=== PATIENT | male | born 1980 | race Caucasian/White ===

== ENCOUNTER 2017-12-03 12:44 | Outpatient (CLI) | payer OTHER, MEDICARE ==
--- NOTE | 2017-12-03 15:52 | MRI ---
CERVICAL SPINE MRI WITHOUT CONTRAST: Date: 12-03-17 Comparison: None. History: Cervical radiculopathy. FINDINGS: There is diffuse abnormal signal intensity throughout the imaged cord. 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 This is primarily located within the right aspect of the cord fro m the C1-2 level and involves the entire cord at the C7-T1 level. The sagittal STIR imaging demonstrates no focal area of osseous marrow edema. There is mild degenerat chencho change at the atlantoaxial interspace. C2-3: Intervertebral disc height and signal intensity is within normal limits with no significant rodolfo tral canal or neural foraminal stenosis. C3-4: Intervertebral disc height and signal intensity is within normal limits with no significant rodolfo tral canal or neural foraminal stenosis. C4-5: Intervertebral disc height and signal intensity is within normal limits with no significant rodolfo tral canal or neural foraminal stenosis. C5-6: Intervertebral disc height and signal intensity is within normal limits with no significant rodolfo tral canal or neural foraminal stenosis. C6-7: Intervertebral disc height and signal intensity is within normal limits with no significant rodolfo tral canal or neural foraminal stenosis. C7-T1: Intervertebral disc height and signal intensity is within normal limits with no significant ce ntral canal or neural foraminal stenosis. IMPRESSION: 1. Extensive abnormal increased T2 signal intensity is seen throughout the visualized spinal cord. Th is suggests syringohydromyelia. Further evaluation with post contrast imaging of the cervical spine a s well as thoracic spine MRI with and without contrast advised to exclude an underlying mass lesion c ausing edema/syringohydromyelia within the cord. Code Brad Jackman made aware at the time of dictation on 12/03/2017. POS: [facility]
== END 2017-12-03 12:45 | disposition home or self-care (01) ==
LOC: MRI 12:44
PROVIDERS: ATTEND Neurological Surgery
DX: M54.12 Radiculopathy, cervical region (principal)
CPT/HCPCS: 72141

== ENCOUNTER 2017-12-29 08:25 | Outpatient (CLI) | payer OTHER, MEDICARE ==
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
--- NOTE | 2017-12-29 10:46 | MRI ---
MRI THORACIC SPINE NONCONTRAST: 12/29/2017 HISTORY: S24.109A, thoracic spinal cord injury in a 37-year-old male. Paraplegia for 17 years due to traumatic injury. COMPARISON: No prior MRIs of the thoracic spine. FINDINGS: There is a syrinx involving the entire visualized portions of the cervical spinal cord and the thorac ic spinal cord. The caliber of the syrinx is greatest in the lower thoracic spine, occupying essenti ally the entire cross sectional area of the spinal cord, diameter measuring approximately 14 mm, expa nding the cord such that the residual cord parenchyma is only a very thin, peripheral rim of tissue. The cord expansion results in the spinal cord occupying almost the entire cross-sectional area of th e spinal canal, at the lower thoracic spine levels (for example, the T10 level). There are pedicle s crews at T10 and T11 and inferior to that, such that the intraspinal canal contents are partially obs cured. The caliber of the syrinx varies throughout the mid and upper thoracic spinal cord, but still occupies the majority of the cross-sectional area of the cord at all levels, and expands the cord to varying degrees. At the upper thoracic spine, it still occupies approximately 70% to 80% of the crown and bridge dental lab technician ss-sectional area of the cord, and it is centered slightly to the right of midline. It still expands the cord at most levels. There are at least 4 focal disk herniations or disk-osteophyte complexes that indent the spinal cord: Right paracentral at T5-T6, left paracentral at T6-T7, central at T7-T8, and right paracentral at T 8-T9, Despite the cord impingements, there is no high grade central spinal canal stenosis at any leve l. There is no high grade neural foraminal stenosis at any level. The vertebral body heights are ma intained from T1 through T11. Bone marrow signal is normal throughout all levels superior to T10. A t the lower levels, the hardware makes it difficult to evaluate the bone marrow signal. There is no major pathology of the perivertebral spaces. There are bilateral tiny pleural effusions. IMPRESSION: 1. 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 2. Multiple (4) focal disk herniations impinging on the spinal cord, but without causing high grade central spinal canal stenosis. 3. Pedicle screws in the lower thoracic spine and lumbar spine. 4. As recommended on the noncontrast cervical spine MRI report of 12/03/2017, contrast enhanced MRIs of the thoracic spine and cervical spine are still recommended to exclude the possibility of a neopl asm as a possible cause of the syrinx. POS: [facility]
--- NOTE | 2017-12-29 12:21 | CT ---
CT OF THE THORACIC SPINE WITHOUT IV CONTRAST: HISTORY: History of paraplegia with back pain. FINDINGS: There is partial visualization of instrumentation involving T11, T12, and L2. There is healed fractu re deformity involving L1. There is bone fragment projecting off the superior aspect of the L1 pedic le causing mild to moderate right osseous neural foraminal narrowing at T12-L1. There is mild centra l canal narrowing at T12-L1 due to retropulsed bone fragment of L1. There is mild multilevel disk deg enerative disease of the thoracic spine. No additional osseous central canal or neural foraminal eliu rowing is otherwise demonstrated. Visualized lungs are clear. Visualized aspects of the retroperito neum appear within normal limits. IMPRESSION: 1. Mild to moderate right osseous neural foraminal narrowing at T12-L1 due to ella projection from the posterior superior aspect of the L1 vertebra and superior aspect of the right L1 pedicle. There is some mild osseous neural central canal narrowing at T12-L1 due to some healed retropulsed bone fra gments of the posterior and superior margin of L1. 2. Mild multilevel spondylosis of the thoracic spine. 3. Partial visualization of instrumentation involving the lower thoracic and upper lumbar spine. POS: [facility]
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
== END 2017-12-29 08:26 | disposition home or self-care (01) ==
LOC: TBSIIMAG 08:25
PROVIDERS: ATTEND Neurological Surgery
DX: S24.109A Unspecified injury at unspecified level of thoracic spinal cord, initial encounter (principal); M47.896 Other spondylosis, lumbar region; M47.894 Other spondylosis, thoracic region; M48.05 Spinal stenosis, thoracolumbar region; M51.24 Other intervertebral disc displacement, thoracic region; G95.0 Syringomyelia and syringobulbia; M99.82 Other biomechanical lesions of thoracic region; M99.83 Other biomechanical lesions of lumbar region; Z98.1 Arthrodesis status
CPT/HCPCS: 72128; 72131; 72146; 72148

== ENCOUNTER 2019-08-06 21:32 | Emergency (ER) | payer OTHER, MEDICARE ==
[2019-08-06 22:36] LABS: Bacteria/HPF None Seen HPF (None Seen); Bilirubin Negative (Negative); Blood, Urine 1+ (Negative); Clarity Clear (Clear); Glucose, Urine (Dipstick) Normal (Negative); Leukocyte 25 Leu/uL (Negative); Nitrite Negative (Negative); Protein, Urine (Dipstick) Negative (Neg-Trace); RBC/HPF 0-3 HPF (0-3); Squamous Epithelial None Seen HPF (0-3); Urobilinogen Normal mg/dL (Less than 2); WBC/HPF 0-3 HPF (0-3)
[2019-08-06 23:57] LABS: #Basophils 0.1 thou/uL (0.0-0.2); #Eosinphils 0.3 thou/uL (0.0-0.7); #Monocytes 0.5 thou/uL (0.11-0.59); #Neutrophils 5.1 thou/uL (1.40-6.50); %Basophils 1.2 % (0.0-1.0); %Lymphocytes 33.1 % (21.0-51.0); %Monocytes 5.9 % (0.0-10.0); %Neutrophils 56.8 % (42.0-75.0); Hemoglobin 15.5 g/dL (14.0-18.0); Mean Corpuscular HGB CONC 35.2 g/dL (32.0-36.0); Mean Corpuscular Hemoglobin 34.2 pg (27.0-31.0); Mean Corpuscular Volume 97.2 fL (78.0-98.0); Mean Platelet Volume 7.7 fL (7.4-10.4); Platelet Count 305 thou/uL (130-400); RBC Distribution Width 12.1 % (11.5-14.5); Red Blood Cell (RBC) Count 4.53 mill/uL (4.70-6.10); White Blood Cell (WBC) Count 8.9 thou/uL (4.8-10.8)
[2019-08-07 00:11] LABS: ALT (SGPT) 73 U/L (8-55); AST (SGOT) 55 U/L (5-34); Albumin 4.5 g/dL (3.5-5.0); Alkaline Phosphatase 81 U/L (40-150); Anion Gap 16 mmol/L (10-20); BUN (Urea Nitrogen) 6 mg/dL (8.9-20.6); Bilirubin, Total 0.5 mg/dL (0.2-1.2); Calc. Creatinine Clearance 0 mL/min (70-130); Calcium 9.5 mg/dL (7.8-10.44); Carbon Dioxide 22 mmol/L (22-29); Chloride 105 mmol/L (98-107); Estimated GFR-MDRD Greater than 90; Globulin 2.9 g/dL (2.4-3.5); Glucose 98 mg/dL (70-105); Potassium 3.7 mmol/L (3.5-5.1); Protein, Total 7.4 g/dL (6.0-8.3); Sodium 139 mmol/L (136-145)
[2019-08-07 01:12] LABS: Bacteria/HPF 1+ HPF (None Seen); Bilirubin Negative (Negative); Blood, Urine 1+ (Negative); Clarity Clear (Clear); Glucose, Urine (Dipstick) Normal (Negative); Leukocyte Negative Leu/uL (Negative); Nitrite Negative (Negative); Protein, Urine (Dipstick) Negative (Neg-Trace); RBC/HPF 0-3 HPF (0-3); Squamous Epithelial 0-3 HPF (0-3); Urobilinogen Normal mg/dL (Less than 2)
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
== END 2019-08-07 00:55 | disposition home or self-care (01) ==
LOC: ERS 21:32
DX: R33.9 Retention of urine, unspecified (principal); R31.9 Hematuria, unspecified; I10 Essential (primary) hypertension; F41.9 Anxiety disorder, unspecified; Z79.899 Other long term (current) drug therapy
CPT/HCPCS: 36415; 51798; 80053; 81003; 81015; 85025; 87086

== ENCOUNTER 2019-08-22 13:51 | Emergency (ER) | payer MEDICARE, OTHER ==
[2019-08-22 14:48] LABS: Bilirubin Negative (Negative); Blood, Urine 2+ (Negative); Clarity Clear (Clear); Glucose, Urine (Dipstick) Normal (Negative); Leukocyte 500 Leu/uL (Negative); Nitrite Negative (Negative); Protein, Urine (Dipstick) 20 mg/dL (Neg-Trace); Urobilinogen Normal mg/dL (Less than 2)
[2019-08-22 14:56] LABS: Bacteria/HPF 3+ HPF (None Seen); Squamous Epithelial 0-3 HPF (0-3); WBC/HPF 21-50 HPF (0-3)
[2019-08-22 15:22] LABS: #Basophils 0.1 thou/uL (0.0-0.2); #Eosinphils 0.1 thou/uL (0.0-0.7); #Lymphocytes 1.8 thou/uL (1.20-3.40); #Monocytes 0.7 thou/uL (0.11-0.59); #Neutrophils 9.3 thou/uL (1.40-6.50); %Basophils 0.8 % (0.0-1.0); %Eosinophils 0.8 % (0.0-10.0); %Lymphocytes 15.1 % (21.0-51.0); %Monocytes 5.7 % (0.0-10.0); %Neutrophils 77.7 % (42.0-75.0); Hemoglobin 15.5 g/dL (14.0-18.0); Mean Corpuscular HGB CONC 34.9 g/dL (32.0-36.0); Mean Corpuscular Hemoglobin 33.8 pg (27.0-31.0); Mean Corpuscular Volume 96.7 fL (78.0-98.0); Mean Platelet Volume 7.6 fL (7.4-10.4); Platelet Count 372 thou/uL (130-400); RBC Distribution Width 11.7 % (11.5-14.5); Red Blood Cell (RBC) Count 4.58 mill/uL (4.70-6.10)
[2019-08-22 15:43] LABS: ALT (SGPT) 50 U/L (8-55); AST (SGOT) 31 U/L (5-34); Albumin 4.5 g/dL (3.5-5.0); Alkaline Phosphatase 95 U/L (40-110); Anion Gap 17 mmol/L (10-20); BUN (Urea Nitrogen) 7 mg/dL (8.9-20.6); Bilirubin, Total 0.4 mg/dL (0.2-1.2); Calc. Creatinine Clearance 0 mL/min (70-130); Calcium 9.2 mg/dL (7.8-10.44); Carbon Dioxide 21 mmol/L (22-29); Chloride 105 mmol/L (98-107); Estimated GFR-MDRD Greater than 90; Globulin 3.4 g/dL (2.4-3.5); Glucose 115 mg/dL (70-105); Protein, Total 7.9 g/dL (6.0-8.3); Sodium 139 mmol/L (136-145)
== END 2019-08-22 16:02 | disposition home or self-care (01) ==
LOC: ERS 13:51
DX: R31.9 Hematuria, unspecified (principal); F41.9 Anxiety disorder, unspecified
CPT/HCPCS: 36415; 80053; 81003; 81015; 85025; 99283

== ENCOUNTER 2020-01-10 12:37 | Outpatient (CLI) | payer OTHER, MEDICARE ==
--- NOTE | 2020-01-10 17:36 | MRI ---
MRI THORACIC SPINE WITHOUT CONTRAST: History: Syringomyelia. Spinal cord injury. Follow up. Patient refused IV contrast. Comparison: 12-29-17 FINDINGS: Severe syringomyelia again noted involving the entire visualized thoracic cord. Extensive syringomyel ia has not significantly changed. Hardware in the lower thoracic spine limits evaluation below T10. There is a disc protrusion at T6-7 paracentrally in the right, impinging on the anterior cord on the right. There continues to be disc protrusion seen at T7-8. A focal protrusion centrally at T7-8 abuts the an terior cord, extending to the left of midline. Disc protrusion and extrusion at T8-9 with superior mi gration compresses the anterior cord. Disc protrusion at T9-10 with superior migration impinges on the anterior cord to the right of midlin e. The visualized thoracic vertebrae maintain normal height and alignment and exhibit normal signal. IMPRESSION: Extensive syringomyelia involving the entire thoracic cord without significant interval change. Disc protrusions are seen as described above. POS: [facility]
--- NOTE | 2020-01-10 17:58 | MRI ---
MRI CERVICAL SPINE WITHOUT CONTRAST: Technologist states that the patient refused IV contrast. History: Neck pain, follow up cervical radiculopathy. Comparison: MRI without contrast 12-03-2017. FINDINGS: Extensive abnormal signal seen throughout the cervical cord and upper thoracic cord. Large area of ab normal signal is seen in the cord to the right of midline as noted on the axial images. This is predo minately high T2 but is somewhat heterogeneous on T2 and low T1. Findings suggest a large syringomyel ocele. It has increased in size when compared to 12-03-17. The syringomyelia is primarily to the right of midline within the cord. There is extensive abnormal T2 signal seen in the cord to the left of mi dline and the cord is enlarged. The degree of abnormal signal appears to have increased within the le ft aspect of the cord. Another small focal area of syringomyelia in the left cord is noted which is m ore prominent today. Cord expansion appears to have increased when compared to the prior study. Cervical vertebrae maintain normal height and alignment and the disc spaces are preserved. There is m ild disc bulge seen at the C4-5 and C5-6 levels. The bulges at this level mildly flatten the anterior thecal sac but do not produce significant cord impingement. Cervical vertebrae signal appears normal ly preserved. IMPRESSION: Extensive abnormality of the cervical cord is again noted extending to the cervicomedullary junction and into the visualized thoracic cord. Large syringomyelia is seen in the cord to the right of midlin e. There is extensive abnormal signal seen in the cord to the left of midline with other focal areas of syringomyelia in the left cord. The cord is enlarged and has increased in size when compared to th e prior exam. The syringomyelia has increased since prior exam. Post contrast exam is again recommend ed. POS: [facility]
== END 2020-01-10 12:38 | disposition home or self-care (01) ==
LOC: TBSIIMAG 12:37
PROVIDERS: ATTEND Physician Assistant
DX: S24.101A Unspecified injury at T1 level of thoracic spinal cord, initial encounter (principal); G95.0 Syringomyelia and syringobulbia; M54.12 Radiculopathy, cervical region; M54.16 Radiculopathy, lumbar region; M51.14 Intervertebral disc disorders with radiculopathy, thoracic region
CPT/HCPCS: 72141; 72146; 72148

== ENCOUNTER 2020-01-14 14:00 | Inpatient (IN) | payer OTHER, MEDICARE ==
[2020-01-14 15:14] LABS: #Basophils 0.1 thou/uL (0.0-0.2); #Eosinphils 0.2 thou/uL (0.0-0.7); #Lymphocytes 2.5 thou/uL (1.20-3.40); #Monocytes 0.6 thou/uL (0.11-0.59); #Neutrophils 5.6 thou/uL (1.40-6.50); %Basophils 0.7 % (0.0-1.0); %Eosinophils 2.4 % (0.0-10.0); %Lymphocytes 27.6 % (21.0-51.0); %Monocytes 6.9 % (0.0-10.0); %Neutrophils 62.4 % (42.0-75.0); Mean Corpuscular HGB CONC 34.4 g/dL (32.0-36.0); Mean Corpuscular Hemoglobin 35.3 pg (27.0-31.0); Mean Platelet Volume 7.9 fL (7.4-10.4); Platelet Count 298 thou/uL (130-400); Red Blood Cell (RBC) Count 3.98 mill/uL (4.70-6.10); White Blood Cell (WBC) Count 8.9 thou/uL (4.8-10.8)
[2020-01-14] MEDS ORDERED: Ampicillin/Sulbactam 3 GM in Sodium Chloride 0.9% 100 ML IVPB SCH (15:30)
[2020-01-14 15:36] LABS: ALT (SGPT) 95 U/L (8-55); AST (SGOT) 74 U/L (5-34); Albumin 4.2 g/dL (3.5-5.0); Alkaline Phosphatase 100 U/L (40-110); Anion Gap 15 mmol/L (10-20); BUN (Urea Nitrogen) 5 mg/dL (8.9-20.6); Bilirubin, Total 0.6 mg/dL (0.2-1.2); Calc. Creatinine Clearance 0 mL/min (70-130); Calcium 9.5 mg/dL (7.8-10.44); Carbon Dioxide 23 mmol/L (22-29); Chloride 105 mmol/L (98-107); Estimated GFR-MDRD Greater than 90; Globulin 3.8 g/dL (2.4-3.5); Glucose 110 mg/dL (70-105); Potassium 3.6 mmol/L (3.5-5.1); Sodium 139 mmol/L (136-145)
[2020-01-14 15:37] LABS: CRP (Inflammatory) 5.71 mg/dL (= or < 0.5)
--- NOTE | 2020-01-14 15:37 | RAD ---
LEFT THUMB 3 VIEWS: Date: 01/14/2020 HISTORY: Swelling, injury. FINDINGS: There is soft tissue swelling, particularly over the dorsal aspect of the thumb. No acute fracture or dislocation. No evidence for metal foreign body. IMPRESSION: Soft tissue swelling of the thumb without acute fracture or dislocation. POS: [facility]
--- NOTE | 2020-01-14 16:25 | ULT ---
Exam: Left thumb ultrasound HISTORY: Evaluate for abscess. Patient recently had the left thumb lanced COMPARISON: none FINDINGS: Targeted sonographic imaging demonstrates soft tissue edema and phlegmonous change. No evid ence of abscess IMPRESSION: No sonographic evidence of abscess.
[2020-01-14 18:09] VITALS: BMI 24.9
[2020-01-14] MEDS ORDERED: Acetaminophen 325 MG TAB PO PRN (18:26)
[2020-01-14] MEDS ORDERED: Ondansetron ODT 4 MG TAB SL PRN (18:26)
[2020-01-14] MEDS ORDERED: Ondansetron PF 4 MG/2 ML Vial IVP PRN (18:26)
[2020-01-14] MEDS ORDERED: HYDROcodone/Acetaminophen 10/325 mg Tablet PO PRN (18:47)
[2020-01-14] MEDS ORDERED: Furosemide 20 MG TAB PO SCH (19:00)
[2020-01-14] MEDS: Nortriptyline HCl 25 MG CAP PO SCH (20:16)
[2020-01-14] MEDS ORDERED: Nortriptyline HCl 25 MG CAP PO SCH (21:00)
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
[2020-01-15] MEDS ORDERED: Vancomycin HCl 1 GM in Premix Bag 1 BAG IVPB SCH (03:00)
[2020-01-15] MEDS: Metoprolol Tartrate 25 MG TAB PO SCH (05:56)
[2020-01-15 06:54] LABS: #Basophils 0.1 thou/uL (0.0-0.2); #Eosinphils 0.2 thou/uL (0.0-0.7); #Lymphocytes 1.5 thou/uL (1.20-3.40); #Monocytes 0.7 thou/uL (0.11-0.59); #Neutrophils 4.1 thou/uL (1.40-6.50); %Basophils 1.2 % (0.0-1.0); %Eosinophils 3.1 % (0.0-10.0); %Lymphocytes 22.7 % (21.0-51.0); %Monocytes 10.2 % (0.0-10.0); %Neutrophils 62.8 % (42.0-75.0); Hemoglobin 13.3 g/dL (14.0-18.0); Mean Corpuscular HGB CONC 34.6 g/dL (32.0-36.0); Mean Corpuscular Hemoglobin 35.7 pg (27.0-31.0); Mean Platelet Volume 8.1 fL (7.4-10.4); Platelet Count 267 thou/uL (130-400); Red Blood Cell (RBC) Count 3.72 mill/uL (4.70-6.10); White Blood Cell (WBC) Count 6.5 thou/uL (4.8-10.8)
[2020-01-15 07:22] LABS: Anion Gap 11 mmol/L (10-20); BUN (Urea Nitrogen) 7 mg/dL (8.9-20.6); Calc. Creatinine Clearance 193 mL/min (70-130); Calcium 9.2 mg/dL (7.8-10.44); Carbon Dioxide 29 mmol/L (22-29); Chloride 105 mmol/L (98-107); Estimated GFR-MDRD Greater than 90; Glucose 94 mg/dL (70-105); Potassium 4.2 mmol/L (3.5-5.1); Sodium 141 mmol/L (136-145)
[2020-01-15] MEDS: Folic Acid 1 MG TAB PO SCH (08:16)
[2020-01-15] MEDS: Enoxaparin Sodium 30 MG/0.3 ML SYRINGE SC SCH (08:16)
[2020-01-15] MEDS: Multivitamin W/ Minerals 1 TAB PO SCH (08:16)
[2020-01-15] MEDS: Furosemide 20 MG TAB PO SCH (08:17)
[2020-01-15] MEDS: Nortriptyline HCl 25 MG CAP PO SCH ×2 (08:17→21:31)
[2020-01-15] MEDS: Thiamine 100 MG TAB PO SCH (08:17)
[2020-01-15] MEDS ORDERED: Morphine 2 MG/ML SYRINGE SLOW IVP PRN (10:49)
--- NOTE | 2020-01-15 15:06 | PDOC.HOSPP ---
- Subjective Encounter Date: 01/15/20 Encounter Time: 08:40 Subjective: Pt seen for followup re: L thumb cellulitis. Feels better. - Objective Vital Signs & Weight: Vital Signs (12 hours) Temp Pulse Resp BP Pulse Ox 01/15/20 11:51 97.5 F L 93 18 147/98 H 99 01/15/20 08:00 97.9 F 88 18 111/68 98 01/15/20 04:00 97.4 F L 85 18 128/81 97 Weight Weight 210 lb I&O: 01/14/20 01/15/20 01/16/20 06:59 06:59 06:59 Intake Total 690 Balance 690 Result Diagrams: 01/15/20 06:20 01/15/20 06:19 Additional Labs: labs and MARs reviewed by al Hospitalist ROS - Review of Systems Constitutional: denies: fever, chills, sweats, weakness, malaise Cardiovascular: denies: chest pain, palpitations, orthopnea, paroxysmal noc. dyspnea, edema, light headedness Gastrointestinal: denies: nausea, vomiting, abdominal pain, diarrhea, constipation, melena, hematochezia Genitourinary: denies: dysuria, frequency, incontinence, hematuria, retention Musculoskeletal: reports: other (L thumb pain). denies: neck pain, shoulder pain, arm pain, back pain, hand pain, leg pain, foot pain - Medication Medications: Active Medications Generic Name Dose Route Start Last Admin Trade Name Freq PRN Reason Stop Dose Admin Hydrocodone Bitart/Acetaminophen 2 tab 01/14/20 18:47 01/15/20 10:46 [place] 10/325 PO 2 tab Q4H PRN Administration Pain Betamethasone/Clotrimazole 0 gm 01/14/20 21:00 01/15/20 08:48 Lotrisone Cream TOP 1 applic BID VISH Administration Enoxaparin Sodium 30 mg 01/15/20 09:00 01/15/20 08:16 Lovenox SC Not Given 0900 VISH Folic Acid 1 mg 01/15/20 09:00 01/15/20 08:16 Folvite PO Not Given DAILY VISH Furosemide 20 mg 01/15/20 09:00 01/15/20 08:17 Lasix PO Not Given DAILY VISH Iron/Minerals/Multivitamins 1 tab 01/15/20 09:00 01/15/20 08:16 Theragran M PO Not Given DAILY [facility] Metoprolol Tartrate 25 mg 01/15/20 09:00 01/15/20 05:56 Lopressor PO 25 mg DAILY VISH Administration Nortriptyline HCl 100 mg 01/14/20 21:00 01/14/20 20:16 Pamelor PO 100 mg HS VISH Administration Nortriptyline HCl 50 mg 01/15/20 09:00 01/15/20 08:17 Pamelor PO Not Given DAILY VISH Pantoprazole Sodium 40 mg 01/15/20 07:30 01/15/20 08:16 Protonix PO Not Given BID-AC VISH Sodium Chloride 10 ml 01/14/20 21:00 01/15/20 08:48 Flush - Normal Saline IVF 10 ml Q12HR VISH Administration Thiamine HCl 100 mg 01/15/20 09:00 01/15/20 08:17 Thiamine PO Not Given DAILY VISH - Exam General Appearance: awake alert Eye: anicteric sclera Neck: supple, symmetric, no thyromegaly, no lymphadenopathy Heart: RRR, no gallops, no rubs, normal peripheral pulses Respiratory: CTAB, no wheezes, no rales, no ronchi, normal chest expansion Gastrointestinal: soft, non-tender, non-distended, normal bowel sounds Extremities: 1+ LE edema Skin - other findings: R thumb cellulitis Musculoskeletal - other findings: paraplegia Psychiatric: normal affect, normal behavior, A&O x 3 Hosp A/P - Plan - Assessment/Plan: (1) Cellulitis of thumb, left Code(s): L03.012 - CELLULITIS OF LEFT FINGER Status: Acute -continue IV vancomycin -For surgery later today (2) Paraplegia Code(s): G82.20 - PARAPLEGIA, UNSPECIFIED Status: Chronic -has lower extremity swelling; continue lasix (3) Anxiety Code(s): F41.9 - ANXIETY DISORDER, UNSPECIFIED Status: Chronic -nil acute (4) GERD (gastroesophageal reflux disease) Code(s): K21.9 - GASTRO-ESOPHAGEAL REFLUX DISEASE WITHOUT ESOPHAGITIS Status: Chronic Assessment and Plan: -stable (5) Hypertension Code(s): I10 - ESSENTIAL (PRIMARY) HYPERTENSION Status: Acute -well controlled
[2020-01-15] MEDS ORDERED: Bupivacaine PF 0.5% 30 ML VIAL ONE (15:39)
[2020-01-15] MEDS ORDERED: Bacitracin Zinc Ointment 30 gm TUBE ONE (15:39)
[2020-01-15] MEDS ORDERED: Sodium Chloride 0.9% 30 ML ONE (15:40)
[2020-01-15] MEDS ORDERED: Midazolam HCl 2 mg/2 ml Vial ONE ×2 (16:40→16:45)
[2020-01-15] MEDS ORDERED: Ketamine 50 MG/ML (10ML VIAL) ONE (16:40)
[2020-01-15] MEDS ORDERED: Propofol 500 MG/50 ML VIAL ONE ×2 (16:40→17:23)
[2020-01-15] MEDS ORDERED: Fentanyl 100 MCG/2 ML VIAL ONE (16:40)
[2020-01-15] MEDS ORDERED: Ondansetron HCl/PF 4 MG/2 ML Vial IVP PRN (18:10)
[2020-01-15] MEDS ORDERED: PACU-Morphine 4MG/ML VIAL SLOW IVP PRN (18:10)
[2020-01-15] MEDS ORDERED: Promethazine HCl 25 MG/ML VIAL SLOW IVP PRN (18:10)
[2020-01-15] MEDS ORDERED: Promethazine HCl 25 MG/ML VIAL IM PRN ×2 (18:10→18:26)
[2020-01-15] MEDS ORDERED: HYDROmorphone 2 MG/ML VIAL SLOW IVP PRN (18:10)
[2020-01-15] MEDS ORDERED: Morphine 4 MG/ML VIAL SLOW IVP PRN (18:25)
[2020-01-15] MEDS ORDERED: Metoprolol Tartrate 5 MG/5 ML VIAL ONE (18:29)
[2020-01-15] MEDS ORDERED: hydrALAZINE 20 MG/ML VIAL ONE (18:30)
[2020-01-15] MEDS: ALPRAZolam 0.5 MG TAB PO PRN (19:53)
[2020-01-16] MEDS: HYDROcodone/Acetaminophen 7.5/325 mg Tablet PO PRN ×3 (05:33→18:24)
[2020-01-16] MEDS: Thiamine 100 MG TAB PO SCH (08:39)
[2020-01-16] MEDS: Metoprolol Tartrate 25 MG TAB PO SCH (08:39)
[2020-01-16] MEDS: ALPRAZolam 0.5 MG TAB PO PRN (08:39)
[2020-01-16] MEDS: Folic Acid 1 MG TAB PO SCH (08:39)
[2020-01-16] MEDS: Multivitamin W/ Minerals 1 TAB PO SCH (08:39)
[2020-01-16] MEDS: Furosemide 20 MG TAB PO SCH (08:40)
[2020-01-16] MEDS: Enoxaparin Sodium 30 MG/0.3 ML SYRINGE SC SCH (08:41)
[2020-01-16] MEDS: Nortriptyline HCl 25 MG CAP PO SCH (08:42)
[2020-01-16 11:47] VITALS: TEMP 98
[2020-01-16 15:32] VITALS: BP 147/93
[2020-01-16] MEDS ORDERED: Clindamycin 150 MG CAP PO SCH ×2 (15:45→22:00)
--- NOTE | 2020-01-16 16:49 | PDOC.HOSPP ---
- Subjective Encounter Date: 01/16/20 Encounter Time: 14:00 Subjective: Pt seen for followup re: hand cellulitis. Feels better today. - Objective Vital Signs & Weight: Vital Signs (12 hours) Temp Pulse Resp BP Pulse Ox 01/16/20 15:28 98 F 93 18 147/93 H 100 01/16/20 11:37 98 F 97 17 143/98 H 98 01/16/20 08:00 97.7 F 99 17 146/94 H 97 01/16/20 05:30 97.7 F 83 16 142/90 H 98 Weight Weight 210 lb I&O: 01/15/20 01/16/20 01/17/20 06:59 06:59 06:59 Intake Total 690 960 Balance 690 960 Result Diagrams: 01/15/20 06:20 01/15/20 06:19 Additional Labs: Labs and MARs reviewed by me EKG Reviewed by me: Yes (Tele: NSR) Hospitalist ROS - Review of Systems Cardiovascular: denies: chest pain, palpitations, orthopnea, paroxysmal noc. dyspnea, edema, light headedness Gastrointestinal: denies: nausea, vomiting, abdominal pain, diarrhea, constipation, melena, hematochezia - Medication Medications: Active Medications Generic Name Dose Route Start Last Admin Trade Name Freq PRN Reason Stop Dose Admin Hydrocodone Bitart/Acetaminophen 1 tab 01/15/20 18:24 01/16/20 11:53 [place] 7.5/325 PO 1 tab Q6H PRN Administration Mild Pain (1-3) Alprazolam 0.5 mg 01/14/20 18:28 01/16/20 08:39 Xanax PO 0.5 mg TID PRN Administration Anxiety Betamethasone/Clotrimazole 0 gm 01/14/20 21:00 01/16/20 08:41 Lotrisone Cream TOP 1 applic BID VISH Administration Clindamycin HCl 300 mg 01/16/20 15:45 01/16/20 16:21 Cleocin PO 01/16/20 17:00 300 mg NOW VISH Administration Enoxaparin Sodium 30 mg 01/15/20 09:00 01/16/20 08:41 Lovenox SC Not Given 0900 VISH Folic Acid 1 mg 01/15/20 09:00 01/16/20 08:39 Folvite PO 1 mg DAILY VISH Administration Furosemide 20 mg 02/22/20 09:00 01/16/20 08:40 Lasix PO 20 mg DAILY VISH Administration Iron/Minerals/Multivitamins 1 tab 01/15/20 09:00 01/16/20 08:39 Theragran M PO 1 tab DAILY VISH Administration Metoprolol Tartrate 25 mg 01/15/20 09:00 01/16/20 08:39 Lopressor PO 25 mg DAILY VISH Administration Nortriptyline HCl 100 mg 01/14/20 21:00 01/15/20 21:31 Pamelor PO 100 mg HS VISH Administration Nortriptyline HCl 50 mg 01/15/20 09:00 01/16/20 08:42 Pamelor PO Not Given DAILY VISH Pantoprazole Sodium 40 mg 01/15/20 07:30 01/16/20 16:21 Protonix PO 40 mg BID-AC VISH Administration Sodium Chloride 10 ml 01/14/20 21:00 01/16/20 08:43 Flush - Normal Saline IVF 10 ml Q12HR VISH Administration Thiamine HCl 100 mg 01/15/20 09:00 01/16/20 08:39 Thiamine PO 100 mg DAILY VISH Administration - Exam General Appearance: awake alert ENT: normocephalic atraumatic, no oropharyngeal lesions Neck: symmetric, no thyromegaly Heart: RRR, normal peripheral pulses Respiratory: CTAB Gastrointestinal: soft, non-tender Extremities: no cyanosis Neurological - other findings: paraplegia Psychiatric: normal affect, normal behavior Hosp A/P - Plan - Assessment/Plan: (1) Cellulitis of thumb, left Code(s): L03.012 - CELLULITIS OF LEFT FINGER Status: Acute -switch to PO clindamycin (2) Paraplegia Code(s): G82.20 - PARAPLEGIA, UNSPECIFIED Status: Chronic -stable (3) Anxiety Code(s): F41.9 - ANXIETY DISORDER, UNSPECIFIED Status: Chronic -stable (4) GERD (gastroesophageal reflux disease) Code(s): K21.9 - GASTRO-ESOPHAGEAL REFLUX DISEASE WITHOUT ESOPHAGITIS Status: Chronic Assessment and Plan: -stable (5) Hypertension Code(s): I10 - ESSENTIAL (PRIMARY) HYPERTENSION Status: Acute -HTN controlled Likely home tomorrow.
--- NOTE | 2020-01-17 16:32 | DIS ---
DATE OF ADMISSION: 01/14/2020 DATE OF DISCHARGE: 01/16/2020 PRIMARY CARE PROVIDER: Dr. Sosa. DISCHARGE DIAGNOSES: 1. Left thumb cellulitis. 2. Left thumb necrotic abscess. CONDITION OF PATIENT ON THE DAY OF DISCHARGE: Stable. I assessed Mr. Sharma on the day of discharge. He denies any chest pain or shortness of breath. Vital signs are stable. S1 and S2 are heard, regular. Lungs are clear to auscultation bilaterally. DISCHARGE MEDICATIONS: 1. Clindamycin 300 mg every 8 hours for 10 days. 2. Lopressor dose has been changed to 25 mg 2 times a day. Doxycycline and cephalosporin were discontinued. Otherwise, no change was made to his pre-admission home medications, which include; 1. Nortriptyline 100 mg at bedtime. 2. Rabeprazole 20 mg daily. 3. Tramadol extended release 200 mg daily. 4. Alprazolam 0.5 mg three times a day as needed. 5. Lasix 20 mg daily. 6. [place] p.r.n. CONSULTATIONS DURING THIS HOSPITALIZATION: Hand Surgery, Dr. Raji Oreilly. POST ACUTE CARE DISCHARGE: With Dr. Oreilly on January 20, 2020, at 11:30 a.m. and with primary care provider in 3 days. DIET: Heart healthy and low sodium. ACTIVITY: No restrictions. HOSPITAL COURSE: Mr. Sharma is a pleasant 39-year-old gentleman, who was admitted to [facility] on January 14, 2020, for left thumb cellulitis and necrotic wound. He was seen by Hand Surgery. He was initially treated with intravenous antibiotics. He underwent incision and drainage. At the time of the dictation, the cultures are preliminary and negative. He has been stepped down to oral antibiotics and advised to follow up with Hand Surgery and primary care provider. His antihypertensives were titrated and metoprolol dose adjusted as described above. He is advised to check his blood pressure and heart rate 3 times a day and show the readings to primary care provider. Many thanks for allowing me to participate in your patient's care. Please feel free to contact me with any questions or concerns. DISCHARGE DESTINATION: Home. TIME SPENT: Total amount of time spent coordinating this discharge: 33 minutes. Job ID: [id number]
== END 2020-01-16 19:25 | disposition home or self-care (01) | DRG 603 ==
LOC: ERS 14:00 → T4-A 17:53
PROVIDERS: ADMIT Internal Medicine; ATTEND Internal Medicine
PROC: 0H9GXZZ Drainage of Left Hand Skin, External Approach (ICD-10-PCS; principal; 2020-01-14)
DX: L03.012 Cellulitis of left finger (principal); L02.512 Cutaneous abscess of left hand; G82.20 Paraplegia, unspecified; I10 Essential (primary) hypertension; F41.9 Anxiety disorder, unspecified; K21.9 Gastro-esophageal reflux disease without esophagitis; Z88.2 Allergy status to sulfonamides
CPT/HCPCS: 36415; 76882; 80048; 80053; 82550; 85025; 85652; 86140; 87070; 87077; 87186; 87205; 88305; 96365; 96367; C9363; J0295; J0360; J2250; J2704; J3010; J3370; J3490; S0020

== ENCOUNTER 2020-02-11 09:28 | Day surgery (SDC) | payer OTHER, MEDICARE ==
[2020-02-10 13:35] VITALS: BMI 28.0
[2020-02-11 10:42] LABS: #Basophils 0.1 thou/uL (0.0-0.2); #Eosinphils 0.3 thou/uL (0.0-0.7); #Lymphocytes 1.9 thou/uL (1.20-3.40); #Monocytes 0.4 thou/uL (0.11-0.59); #Neutrophils 5.2 thou/uL (1.40-6.50); %Eosinophils 3.5 % (0.0-10.0); %Lymphocytes 24.6 % (21.0-51.0); %Monocytes 4.6 % (0.0-10.0); %Neutrophils 66.3 % (42.0-75.0); Hemoglobin 13.9 g/dL (14.0-18.0); Mean Corpuscular Hemoglobin 33.6 pg (27.0-31.0); Mean Platelet Volume 7.9 fL (7.4-10.4); Platelet Count 289 thou/uL (130-400); RBC Distribution Width 11.7 % (11.5-14.5); Red Blood Cell (RBC) Count 4.12 mill/uL (4.70-6.10); White Blood Cell (WBC) Count 7.8 thou/uL (4.8-10.8)
[2020-02-11] MEDS ORDERED: Clindamycin/D5W 600 mg/50 ml Premix Bag ONE (10:43)
[2020-02-11] MEDS ORDERED: Fentanyl 100 MCG/2 ML VIAL ONE (11:24)
[2020-02-11] MEDS ORDERED: Midazolam HCl 2 mg/2 ml Vial ONE (11:24)
[2020-02-11] MEDS ORDERED: Bupivacaine PF 0.5% 30 ML VIAL ONE (11:40)
[2020-02-11] MEDS ORDERED: Bacitracin Zinc Ointment 30 gm TUBE ONE (11:41)
[2020-02-11] MEDS ORDERED: Thrombin 5000 UNITS/5 ML VIAL ONE (11:41)
[2020-02-11] MEDS ORDERED: PROPOFOL 200 MG/20 ML VIAL ONE (13:04)
[2020-02-11] MEDS ORDERED: Lidocaine 1% PF 5 ML VIAL ONE (13:04)
[2020-02-11] MEDS ORDERED: Ketorolac Tromethamine 30 MG/ML VIAL ONE (13:37)
--- NOTE | 2020-02-14 07:25 | OP ---
DATE OF PROCEDURE: 02/11/2020 PREOPERATIVE DIAGNOSIS: Left thumb wound, 4 x 2 cm. POSTOPERATIVE DIAGNOSES: 1. Left thumb wound, 4 x 2 cm. 2. 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 PROCEDURES PERFORMED: 1. Left thumb wound debridement. 2. Left thumb split-thickness skin graft from the left thigh, 4 x 2 cm. BLOOD LOSS: Less than 5 mL. TOURNIQUET TIME: None. SPECIMENS: None. FINDINGS: Very well-healed Integra bed, 4 x 2 cm. INDICATIONS: The patient returns for staged wound management after having a very bad arachnoid bite, caused a loss of the entire dermis, epidermis, subcutaneous fat. He had debridements and then Integra graft was placed 4 weeks ago. He has now in clinic presented this week with healed graft bed and time for the split-thickness skin graft has arrived. DESCRIPTION OF PROCEDURE: After successful general endotracheal anesthesia, the limb was prepped, the left upper extremity along with the whole anterior and dorsal thigh and lateral thigh. This was on the left side. We then gave him 10 mL thumb block proximal to the skin graft recipient site and gave him a block all around the graft harvest site with 0.5% Marcaine. We then debrided the wound edges to include use of tenotomy scissors, Adson's, curette, irrigation with 250 mL of normal saline bulb syringe in an excisional technique. Depth was down to include the Integra graft, which would be dermis and epidermis. We then graft area was prepared, we placed the blade and dermatome, Renea power type, and then set it with the setting of 0.20 cm, harvested an approximately 3.5 x 1.5 cm graft and then meshed it to 1 to 1.5 to make it 4 x 2. We placed it over the wound with excellent hemostasis, stapled it to include 2 vern inside the graft bed, then placed bacitracin and Adaptic over this and then mineral oil soaked cotton ball as a bolster with vern and the patient had a bulky dressing applied here. We placed thrombin and Gelfoam on the donor site and then covered that with Tegaderm and 4x4s and the patient left the operating room without evidence of anesthetic or operative complication. Job ID: [id number]
== END 2020-02-11 15:29 | disposition home or self-care (01) ==
LOC: SDC 09:28
PROVIDERS: ATTEND Orthopaedic Surgery Hand Surgery
PROC: 0HBJXZZ Excision of Left Upper Leg Skin, External Approach (ICD-10-PCS; principal; 2020-02-11)
PROC: 0HRGX74 Replacement of Left Hand Skin with Autologous Tissue Substitute, Partial Thickness, External Approach (ICD-10-PCS; principal; 2020-02-11)
DX: S60.36 Insect bite (nonvenomous) of thumb (principal); G82.20 Paraplegia, unspecified; F17.200 Nicotine dependence, unspecified, uncomplicated; W57.XXXD Bitten or stung by nonvenomous insect and other nonvenomous arthropods, subsequent encounter; Z79.891 Long term (current) use of opiate analgesic; Z79.899 Other long term (current) drug therapy; Z88.1 Allergy status to other antibiotic agents; Z88.2 Allergy status to sulfonamides; Z98.1 Arthrodesis status
CPT/HCPCS: 36415; 85025; 85652; J1885; J2001; J2250; J2704; J3010; J3490; S0020

== ENCOUNTER 2022-04-20 11:01 | Emergency (ER) | payer BC, MEDICARE | END 2022-04-20 12:10 | disposition home or self-care (01) | LOC: ERS 11:01 | DX: L89.323 Pressure ulcer of left buttock, stage 3 (principal); F10.10 Alcohol abuse, uncomplicated; I10 Essential (primary) hypertension; F17.210 Nicotine dependence, cigarettes, uncomplicated; Z79.899 Other long term (current) drug therapy | CPT/HCPCS: 99283 ==

== ENCOUNTER 2022-05-21 10:34 | Outpatient (CLI) | payer BC, MEDICARE | END 2022-05-21 10:35 | disposition home or self-care (01) | PROVIDERS: ATTEND Family Medicine | DX: G82.20 Paraplegia, unspecified (principal) ==

== ENCOUNTER 2022-09-26 19:30 | Emergency (ER) | payer BC, MEDICARE ==
[2022-09-26 20:45] LABS: Bilirubin Negative (Negative); Blood, Urine Negative (Negative); Clarity Clear (Clear); Glucose, Urine (Dipstick) Normal (Negative); Ketone, Urine Negative (Negative); Leukocyte Negative Leu/uL (Negative); Nitrite Negative (Negative); Protein, Urine (Dipstick) Negative (Neg-Trace); Specific Gravity, Urine 1.003 (1.002-1.036); Urobilinogen Normal mg/dL (Less than 2)
== END 2022-09-27 00:20 | disposition home or self-care (01) ==
LOC: ERS 19:30
DX: R33.9 Retention of urine, unspecified (principal); I10 Essential (primary) hypertension; F10.20 Alcohol dependence, uncomplicated; F17.210 Nicotine dependence, cigarettes, uncomplicated
CPT/HCPCS: 51702; 81003

== ENCOUNTER 2023-01-23 22:55 | Inpatient (IN) | payer BC, MEDICARE ==
[2023-01-24] MEDS ORDERED: Acetaminophen 325 MG TAB PO PRN (00:01)
[2023-01-24 00:06] VITALS: BMI 20.6
[2023-01-24] MEDS ORDERED: ALPRAZolam 0.5 MG TAB PO PRN (00:54)
[2023-01-24] MEDS ORDERED: Vancomycin HCl 500 MG in Sodium Chloride 0.9% 100 ML IVPB SCH (01:00)
[2023-01-24 02:36] LABS: SARS-CoV-2 NAA Rapid Test DETECTED (NotDetected)
[2023-01-24 07:07] LABS: ALT (SGPT) 31 U/L (8-55); AST (SGOT) 54 U/L (5-34); Albumin 2.3 g/dL (3.5-5.0); Alkaline Phosphatase 78 U/L (40-110); Anion Gap 13 mmol/L (10-20); BUN (Urea Nitrogen) 9 mg/dL (8.9-20.6); Bilirubin, Total 0.7 mg/dL (0.2-1.2); Calc. Creatinine Clearance 148 mL/min (70-130); Calcium 8.3 mg/dL (7.8-10.44); Carbon Dioxide 23 mmol/L (22-29); Chloride 98 mmol/L (98-107); Estimated GFR 117; Globulin 3.3 g/dL (2.4-3.5); Glucose 98 mg/dL (70-105); Potassium 3.6 mmol/L (3.5-5.1); Protein, Total 5.6 g/dL (6.0-8.3); Sodium 130 mmol/L (136-145)
[2023-01-24 07:39] LABS: Band 15 % (5-11); Dohle Bodies SLIGHT; Hemoglobin 10.9 g/dL (14.0-18.0); Lymphocytes 8 % (21-51); MDiff Complete? YES; Macrocytosis SLIGHT = 6-15 cells (100X) (0-5/hpf); Mean Corpuscular HGB CONC 33.6 g/dL (32.0-36.0); Mean Corpuscular Hemoglobin 35.4 pg (27.0-31.0); Mean Platelet Volume 9.2 fL (7.4-10.4); Monocytes 3 % (0-10); Myelocyte 1 % (0-0); Neutrophil 69 % (42-75); Platelet Count 200 10x3/uL (130-400); Platelet Morphology Comment Appears Adequate; Polychromasia SLIGHT = 2-3 cells (100X) (0-2/hpf); RBC Distribution Width 11.4 % (11.5-14.5); Reactive Lymphocytes 4 % (0-10); Red Blood Cell (RBC) Count 3.09 mill/uL (4.70-6.10); Toxic Granulation SLIGHT; White Blood Cell (WBC) Count 7.8 10x3/uL (4.8-10.8)
[2023-01-24] MEDS: Thiamine 100 MG TAB PO SCH (09:33)
[2023-01-24] MEDS: Folic Acid 1 MG TAB PO SCH (09:33)
[2023-01-24] MEDS: Vancomycin 1 GM in Premix Bag 1 BAG IVPB SCH ×2 (09:33→16:57)
[2023-01-24] MEDS: Cefepime 2 GM in Sodium Chloride 0.9% 100 ML IVPB SCH ×2 (09:33→21:21)
[2023-01-24] MEDS: HYDROcodone/Acetaminophen 5/325 mg Tablet PO PRN ×2 (09:36→16:57)
[2023-01-25] MEDS: Vancomycin 1 GM in Premix Bag 1 BAG IVPB SCH ×3 (01:04→17:12)
[2023-01-25] MEDS: Thiamine 100 MG TAB PO SCH (07:54)
[2023-01-25] MEDS: Folic Acid 1 MG TAB PO SCH (07:54)
[2023-01-25 08:19] LABS: Hemoglobin 11.4 g/dL (14.0-18.0); Mean Corpuscular HGB CONC 33.1 g/dL (32.0-36.0); Mean Platelet Volume 9.1 fL (7.4-10.4); Platelet Count 318 10x3/uL (130-400); RBC Distribution Width 11.6 % (11.5-14.5); Red Blood Cell (RBC) Count 3.27 mill/uL (4.70-6.10); White Blood Cell (WBC) Count 10.7 10x3/uL (4.8-10.8)
[2023-01-25 08:32] LABS: ALT (SGPT) 35 U/L (8-55); AST (SGOT) 49 U/L (5-34); Albumin 2.8 g/dL (3.5-5.0); Alkaline Phosphatase 93 U/L (40-110); Anion Gap 9 mmol/L (10-20); BUN (Urea Nitrogen) 7 mg/dL (8.9-20.6); Bilirubin, Total 0.5 mg/dL (0.2-1.2); Calc. Creatinine Clearance 175 mL/min (70-130); Calcium 8.9 mg/dL (7.8-10.44); Carbon Dioxide 27 mmol/L (22-29); Chloride 104 mmol/L (98-107); Estimated GFR 123; Globulin 3.9 g/dL (2.4-3.5); Glucose 109 mg/dL (70-105); Potassium 3.6 mmol/L (3.5-5.1); Protein, Total 6.7 g/dL (6.0-8.3); Sodium 136 mmol/L (136-145)
[2023-01-25] MEDS: Cefepime 2 GM in Sodium Chloride 0.9% 100 ML IVPB SCH (08:42)
[2023-01-25 10:14] LABS: Band 14 % (5-11); Large Platelets SLIGHT; MDiff Complete? YES; Macrocytosis SLIGHT = 6-15 cells (100X) (0-5/hpf); Monocytes 2 % (0-10); Neutrophil 84 % (42-75); Platelet Morphology Comment Appears Adequate
[2023-01-25] MEDS ORDERED: fentaNYL PF 100 MCG/2 ML SYRINGE ONE (13:08)
[2023-01-25] MEDS ORDERED: Ondansetron PF 4 MG/2 ML Vial ONE (13:23)
[2023-01-25] MEDS ORDERED: PROPOFOL 200 MG/20 ML VIAL ONE (13:23)
[2023-01-25] MEDS ORDERED: Rocuronium Bromide 10 MG/ML (10ML VIAL) ONE (13:23)
[2023-01-25] MEDS ORDERED: Lidocaine 1% PF 5 ML VIAL ONE (13:23)
[2023-01-25] MEDS ORDERED: SUGAMMADEX SODIUM 200 MG/2 ML VIAL ONE (13:58)
[2023-01-25] MEDS: HYDROcodone/Acetaminophen 5/325 mg Tablet PO PRN (17:16)
[2023-01-26] MEDS: HYDROcodone/Acetaminophen 5/325 mg Tablet PO PRN ×2 (04:55→14:17)
[2023-01-26] MEDS ORDERED: Vancomycin 1 GM in Premix Bag 1 BAG IVPB SCH (05:00)
[2023-01-26] MEDS ORDERED: Cefepime 2 GM in Sodium Chloride 0.9% 100 ML IVPB SCH (06:00)
[2023-01-26 07:11] LABS: #Eosinphils 0.1 thou/uL (0.0-0.7); #Monocytes 0.8 thou/uL (0.11-0.59); #Neutrophils 5.9 thou/uL (1.40-6.50); %Basophils 0.1 % (0.0-1.0); %Eosinophils 1.6 % (0.0-10.0); %Monocytes 9.6 % (0.0-10.0); %Neutrophils 75.7 % (42.0-75.0); Hemoglobin 9.6 g/dL (14.0-18.0); Mean Corpuscular HGB CONC 33.3 g/dL (32.0-36.0); Mean Corpuscular Hemoglobin 35.1 pg (27.0-31.0); Mean Platelet Volume 8.5 fL (7.4-10.4); Platelet Count 360 10x3/uL (130-400); RBC Distribution Width 11.6 % (11.5-14.5); Red Blood Cell (RBC) Count 2.74 mill/uL (4.70-6.10); White Blood Cell (WBC) Count 7.7 10x3/uL (4.8-10.8)
[2023-01-26 07:36] LABS: ALT (SGPT) 31 U/L (8-55); AST (SGOT) 41 U/L (5-34); Albumin 2.1 g/dL (3.5-5.0); Alkaline Phosphatase 68 U/L (40-110); Anion Gap 11 mmol/L (10-20); BUN (Urea Nitrogen) 6 mg/dL (8.9-20.6); Bilirubin, Total 0.3 mg/dL (0.2-1.2); Calc. Creatinine Clearance 178 mL/min (70-130); Calcium 8.5 mg/dL (7.8-10.44); Carbon Dioxide 25 mmol/L (22-29); Chloride 106 mmol/L (98-107); Estimated GFR 124; Globulin 3.3 g/dL (2.4-3.5); Glucose 122 mg/dL (70-105); Potassium 3.1 mmol/L (3.5-5.1); Protein, Total 5.4 g/dL (6.0-8.3); Sodium 139 mmol/L (136-145)
[2023-01-26] MEDS: Folic Acid 1 MG TAB PO SCH (09:08)
[2023-01-26] MEDS: Thiamine 100 MG TAB PO SCH (09:08)
[2023-01-26] MEDS ORDERED: Potassium Chloride 20 MEQ TAB PO SCH (10:00)
[2023-01-27] MEDS: HYDROcodone/Acetaminophen 5/325 mg Tablet PO PRN ×2 (05:48→15:51)
[2023-01-27 07:03] LABS: Hemoglobin 11.6 g/dL (14.0-18.0); Mean Corpuscular HGB CONC 32.2 g/dL (32.0-36.0); Mean Corpuscular Hemoglobin 34.5 pg (27.0-31.0); Mean Platelet Volume 8.6 fL (7.4-10.4); Platelet Count 545 10x3/uL (130-400); RBC Distribution Width 11.8 % (11.5-14.5); Red Blood Cell (RBC) Count 3.36 mill/uL (4.70-6.10); White Blood Cell (WBC) Count 8.8 10x3/uL (4.8-10.8)
[2023-01-27 07:09] LABS: Anion Gap 13 mmol/L (10-20); BUN (Urea Nitrogen) 5 mg/dL (8.9-20.6); Calc. Creatinine Clearance 172 mL/min (70-130); Carbon Dioxide 24 mmol/L (22-29); Chloride 106 mmol/L (98-107); Potassium 3.8 mmol/L (3.5-5.1); Sodium 139 mmol/L (136-145)
[2023-01-27 07:10] LABS: ALT (SGPT) 37 U/L (8-55); AST (SGOT) 38 U/L (5-34); Albumin 2.7 g/dL (3.5-5.0); Alkaline Phosphatase 82 U/L (40-110); Bilirubin, Total 0.4 mg/dL (0.2-1.2); Calcium 8.5 mg/dL (7.8-10.44); Estimated GFR 123; Globulin 3.7 g/dL (2.4-3.5); Glucose 124 mg/dL (70-105); Protein, Total 6.4 g/dL (6.0-8.3)
[2023-01-27 08:42] LABS: Band 12 % (5-11); Eosinophils 2 % (0-10); Lymphocytes 14 % (21-51); MDiff Complete? YES; Macrocytosis SLIGHT = 6-15 cells (100X) (0-5/hpf); Metamyelocyte 2 % (0-0); Monocytes 7 % (0-10); Neutrophil 62 % (42-75); Nucleated RBC (Manual Ct) 1 % (0); Platelet Morphology Comment Appears Increased; Polychromasia SLIGHT = 2-3 cells (100X) (0-2/hpf); Reactive Lymphocytes 1 % (0-10)
[2023-01-27] MEDS: Folic Acid 1 MG TAB PO SCH (08:54)
[2023-01-27] MEDS: Thiamine 100 MG TAB PO SCH (08:55)
[2023-01-28] MEDS: HYDROcodone/Acetaminophen 5/325 mg Tablet PO PRN ×2 (06:24→11:48)
[2023-01-28 08:33] VITALS: BP 118/72; TEMP 98.5
[2023-01-28] MEDS: Folic Acid 1 MG TAB PO SCH (08:37)
[2023-01-28] MEDS: Thiamine 100 MG TAB PO SCH (08:37)
== END 2023-01-28 17:23 | disposition home health service (06) | DRG 579 ==
LOC: T4-A 23:56
PROVIDERS: ADMIT Family Medicine; ATTEND Emergency Medicine
PROC: 8E0ZXY6 Isolation (ICD-10-PCS; 2023-01-23)
PROC: 0KBN0ZZ Excision of Right Hip Muscle, Open Approach (ICD-10-PCS; principal; 2023-01-25)
DX: L89.314 Pressure ulcer of right buttock, stage 4 (principal); U07.1 COVID-19; G95.0 Syringomyelia and syringobulbia; E87.1 Hypo-osmolality and hyponatremia; E44.0 Moderate protein-calorie malnutrition; G89.29 Other chronic pain; E87.6 Hypokalemia; D53.9 Nutritional anemia, unspecified; F41.9 Anxiety disorder, unspecified; I10 Essential (primary) hypertension; Z68.20 Body mass index [BMI] 20.0-20.9, adult; Z88.0 Allergy status to penicillin; Z88.2 Allergy status to sulfonamides; Z79.899 Other long term (current) drug therapy; Z98.1 Arthrodesis status; S34.101S Unspecified injury to L1 level of lumbar spinal cord, sequela
CPT/HCPCS: 36415; 80053; 80202; 83930; 83935; 84300; 85025; 85652; 86140; 87070; 87077; 87186; 87205; 97139; J0692; J2405; J2704; J3370; J3370-JW; J3490; U0002